=== PATIENT | female | born 1975 | race Caucasian/White ===

== ENCOUNTER 2019-11-28 12:07 | Emergency (ER) | payer BC, MEDICAID ==
--- NOTE | 2019-11-28 12:48 | ER Document Report ---
ED General - General Stated Complaint: NAUSEA,VOMITING Time Seen by Provider: 11/28/19 12:48 - HPI Notes: 44-year-old female with a history of 4 C-sections presents to the emergency room today with complaints of intermittent abdominal pain and vomiting since April but has become progressively worse over the last 3 days. She reports anytime she eats anything she starts vomiting, having abdominal pain. Since april, pt reports that she has had issues with nausea and vomiting, she does report that her pain is worse after eating. Patient states that she is also having looser stool, denies any new medications foods or travel. She is concerned that she may have appendicitis because her mother told her her symptoms sound like appendicitis reports Patient has not tried any kzyi-cjd-fxywryj medications. Reports pain is 4 out of 5. Denies any history of GI bleeds, she is unsure about melena. Denies any fevers or chills. Denies any history of GERD, for colonoscopy. Patient has not tried any mdtl-xrz-rjcvygr medications to help with her vomiting. MEDICATIONS: I agree with the patient medications as charted by the RN. ALLERGIES: I agree with the allergies as charted by the RN. PAST MEDICAL HISTORY/PAST SURGICAL HISTORY: Reviewed and agree as charted by RN. SOCIAL HISTORY: Reviewed and agree as charted by RN. FAMILY HISTORY: No significant familial comorbid conditions directly related to patient complaint EXAM: Reviewed vital signs as charted by RN. REVIEW OF SYSTEMS:reviewed vital signs by RN CONSTITUTIONAL : Denies fever, chills, or sweats. Denies recent illness. EENT: Denies eye, ear, throat, or mouth pain or symptoms. Denies nasal or sinus congestion or discharge. Denies throat, tongue, or mouth swelling or difficulty swallowing. CARDIOVASCULAR: Denies chest pain. Denies palpitations or racing or irregular heart beat. Denies ankle edema. RESPIRATORY: Denies cough, cold, or chest congestion. Denies shortness of breath, difficulty breathing, or wheezing. GASTROINTESTINAL: Reports upper abdominal pain. denies abdominal pain or distention. reports nausea. denies vomiting, or diarrhea. Denies blood in v omitus, stools, or per rectum. Denies black, tarry stools. Denies constipation. GENITOURINARY: Denies difficulty urinating, painful urination, burning, frequency, blood in urine, or discharge. FEMALE GENITOURINARY: Denies vaginal bleeding, heavy or abnormal periods, irregular periods. Denies vaginal discharge or odor. MUSCULOSKELETAL: Denies back or neck pain or stiffness. Denies joint pain or swelling. SKIN: Denies rash, lesions or sores. HEMATOLOGIC : Denies easy bruising or bleeding. LYMPHATIC: Denies swollen, enlarged glands. NEUROLOGICAL: Denies confusion or altered mental status. Denies passing out or loss of consciousness. Denies dizziness or lightheadedness. Denies headache. Denies weakness or paralysis or loss of use of either side. Denies problems with gait or speech. Denies sensory loss, numbness, or tingling. Denies seizures. PSYCHIATRIC: Denies anxiety or stress. Denies depression, suicidal ideation, or homicidal ideation. ALL OTHER SYSTEMS REVIEWED AND NEGATIVE. PHYSICAL EXAMINATION: GENERAL: Well-appearing, well-nourished and in no acute distress. HEAD: Atraumatic, normocephalic. EYES: Pupils equal round and reactive to light, extraocular movements intact, conjunctiva are normal. ENT: Nares patent, oropharynx clear without exudates. Moist mucous membranes. NECK: Normal range of motion, supple without lymphadenopathy LUNGS: Breath sounds clear to auscultation bilaterally and equal. No wheezes rales or rhonchi. HEART: Regular rate and rhythm without murmurs ABDOMEN: Soft, RUQ abd pain on palpation, epigastric a nondistended abdomen. No guarding, no rebound. No masses appreciated. no cva tenderness appreciated. Female : deferred Musculoskeletal: Normal range of motion, no pitting or edema. No cyanosis. NEUROLOGICAL: Cranial nerves grossly intact. Normal speech, normal gait. Normal sensory, motor exams PSYCH: Normal mood, normal affect. SKIN: Warm, Dry, normal turgor, no rashes or lesions noted. Dictation was performed using [employer] voice recognition software - Related Data Allergies/Adverse Reactions: No Known Allergies Allergy (Unverified 11/28/19 12:44) Past Medical History - General Information source: Patient - Social History Smoking Status: Unknown if Ever Smoked Family History: Reviewed & Not Pertinent Physical Exam - Vital signs Vitals: Temp Pulse Resp BP Pulse Ox 98.4 F 80 16 113/58 L 100 11/28/19 12:12 11/28/19 12:12 11/28/19 12:12 11/28/19 12:12 11/28/19 12:12 Course - Re-evaluation Re-evalutation: 11/28/19 18:50 Afebrile vitals stable no distress. CBC negative for leukocytosis. CMP shows no nephrotic issues, liver enzymes are well over 3 times the normal limit as well as her direct bilirubin being elevated and total bilirubin being elevated. Urinalysis does show bilirubin as well, no leukesterase. Patient given IV fluids, Zofran to help manage her nausea and. Ultrasound of abdomen does show multiple gallstones, largest measures 2 cm, normal wall thickness, no pericholecystic fluid, CT abdomen pelvis with IV and oral contrast shows that she does have a normal appendix, she does show to have gallstones, no inflammatory changes to suggest cholelithiasis however patient is having tenderness in her right upper quadrant and is symptomatic. Patient refuses to stay because she has to go home to be with her daughter because she is home alone, her ex- is coming in the morning to take the child for custody per the court order regulations. She states she does not any family in the area nobody that can watch her child. She states that she cannot stay even though I discussed with her explicitly the risk of possible temporary permanent disability or that she does need to be evaluated by a surgeon for a possible cholecystectomy. After performing a Medical Screening Examination, I spoke with the patient at length in regards to leaving the hospital against medical advice. I do not believe the patient should leave but the patient is alert oriented x4, understands the risks and benefits of staying and leaving including disability and . Pt understands that she can return at any time for further care and is more than welcome to do so. Patient was given Dr. Goldman, surgeon applications architect, contact information and was counseled to return immediately if any of her symptoms change she can bring her child if still needed. pt verbalizes this understanding. - Vital Signs Vital signs: Temp Pulse Resp BP Pulse Ox 98.7 F 92 16 105/75 100 11/28/19 18:21 11/28/19 18:21 11/28/19 18:21 11/28/19 18:21 11/28/19 18:21 - Laboratory Result Diagrams: 11/28/19 16:12 11/28/19 16:12 Laboratory results interpreted by me: 11/28/19 11/28/19 11/28/19 12:18 12:18 12:18 Hgb Hct Lymph % (Auto) 12.9 L Chloride Carbon Dioxide 31 H Glucose Calcium Total Bilirubin 3.9 H Direct Bilirubin 2.6 H AST 241 H ALT 592 H Total Protein Albumin Urine Protein 30 H Urine Bilirubin MODERATE H Urine Urobilinogen 4.0 H 11/28/19 11/28/19 16:12 16:12 Hgb 11.9 L D Hct 34.3 L Lymph % (Auto) Chloride 109 H Carbon Dioxide Glucose 71 L Calcium 7.5 L Total Bilirubin 3.3 H Direct Bilirubin 2.3 H AST 166 H ALT 419 H Total Protein 5.6 L Albumin 3.1 L Urine Protein Urine Bilirubin Urine Urobilinogen Discharge - Discharge Clinical Impression: Liver enzyme elevation, Cholelithiasis, Elevated bilirubin Condition: Stable Disposition: AGAINST MEDICAL ADVICE Referrals: COSME GOLDMAN MD [ACTIVE STAFF] - Follow up tomorrow
[2019-11-28 13:00] LABS: ABSOLUTE EOSINOPHILS # (AUTO) 0.3 10^3/uL (0.0-0.6); ABSOLUTE LYMPHOCYTES (AUTO) 1.1 10^3/uL (0.5-4.7); ABSOLUTE MONOCYTES (AUTO) 0.4 10^3/uL (0.1-1.4); ABSOLUTE NEUT (AUTO) 6.3 10^3/uL (1.7-8.2); BASOPHILS % (AUTO) 0.5 % (0-2); EOSINOPHILS % (AUTO) 4.2 % (0-6); HEMATOCRIT 42.4 % (36.0-47.0); HEMOGLOBIN 14.4 g/dL (12.0-15.5); LYMPHOCYTES % (AUTO) 12.9 % (13-45); MEAN CORPUSCULAR VOLUME 85 fl (80-97); MONOCYTES % (AUTO) 5.4 % (3-13); PLATELET COUNT 407 10^3/uL (150-450); RED BLOOD COUNT 4.97 10^6/uL (3.72-5.28); TOTAL CELLS COUNTED % (AUTO) 100 %; WHITE BLOOD COUNT 8.2 10^3/uL (4.0-10.5)
[2019-11-28] MEDS ORDERED: NORMAL SALINE 1000 ML 1,000 ML IV ONE ×2 (13:02→15:18)
[2019-11-28] MEDS ORDERED: ONDANSETRON HCL INJ/PF 4 MG/2 ML SDV IV ONE (13:02)
[2019-11-28 13:07] LABS: APPEARANCE,URINE SLIGHTLY-CLOUDY; BILIRUBIN,URINE MODERATE (NEGATIVE); COLOR,URINE AMBER; GLUCOSE, URINE NEGATIVE (NEGATIVE); KETONES,URINE NEGATIVE (NEGATIVE); LEUKOCYTE ESTERASE,URINE NEGATIVE (NEGATIVE); NITRITE,URINE NEGATIVE (NEGATIVE); PROTEIN,URINE 30 mg/dL (NEGATIVE)
[2019-11-28 13:11] LABS: ALBUMIN 4.3 g/dL (3.5-5.0); ALKALINE PHOSPHATASE 124 U/L (38-126); ANION GAP 9 (5-19); ASPARTATE AMINO TRANSFERASE 241 U/L (14-36); BILIRUBIN,DIRECT 2.6 mg/dL (0.0-0.4); BILIRUBIN,TOTAL 3.9 mg/dL (0.2-1.3); BLOOD UREA NITROGEN 13 mg/dL (7-20); CALCIUM 9.2 mg/dL (8.4-10.2); CARBON DIOXIDE 31 mmol/L (22-30); CHLORIDE 101 mmol/L (98-107); GLUCOSE 106 mg/dL (75-110); POTASSIUM 4.2 mmol/L (3.6-5.0); TOTAL PROTEIN 7.1 g/dL (6.3-8.2)
[2019-11-28] MEDS ORDERED: MAG HYDROX/AL HYDROX/SIMETH SUSP 30 ML UDCUP PO ONE (15:17)
[2019-11-28] MEDS ORDERED: LIDOCAINE 2% VISCOUS SOLN 15 ML UDCUP PO ONE (15:17)
[2019-11-28] MEDS ORDERED: METOCLOPRAMIDE HCL ORAL SOLN 10 MG/10 ML UDCUP PO ONE (15:17)
[2019-11-28 16:34] LABS: ABSOLUTE EOSINOPHILS # (AUTO) 0.2 10^3/uL (0.0-0.6); ABSOLUTE LYMPHOCYTES (AUTO) 1.2 10^3/uL (0.5-4.7); ABSOLUTE MONOCYTES (AUTO) 0.4 10^3/uL (0.1-1.4); ABSOLUTE NEUT (AUTO) 4.1 10^3/uL (1.7-8.2); BASOPHILS % (AUTO) 0.2 % (0-2); EOSINOPHILS % (AUTO) 3.4 % (0-6); HEMATOCRIT 34.3 % (36.0-47.0); LYMPHOCYTES % (AUTO) 20.1 % (13-45); MEAN CORPUSCULAR HEMOGLOBIN 29.5 pg (27.0-33.4); MEAN CORPUSCULAR HGB CONC 34.6 g/dL (32.0-36.0); MEAN CORPUSCULAR VOLUME 85 fl (80-97); MONOCYTES % (AUTO) 6.7 % (3-13); PLATELET COUNT 271 10^3/uL (150-450); RED BLOOD COUNT 4.04 10^6/uL (3.72-5.28); RED CELL DISTRIBUTION WIDTH 13.8 % (11.5-14.0); SEGMENTED NEUTROPHILS % (AUTO) 69.6 % (42-78); TOTAL CELLS COUNTED % (AUTO) 100 %; WHITE BLOOD COUNT 5.9 10^3/uL (4.0-10.5)
[2019-11-28 16:36] LABS: HEMOGLOBIN 11.9 g/dL (12.0-15.5)
[2019-11-28 16:40] LABS: ALBUMIN 3.1 g/dL (3.5-5.0); ALKALINE PHOSPHATASE 94 U/L (38-126); ANION GAP 7 (5-19); ASPARTATE AMINO TRANSFERASE 166 U/L (14-36); BILIRUBIN,DIRECT 2.3 mg/dL (0.0-0.4); BILIRUBIN,TOTAL 3.3 mg/dL (0.2-1.3); BLOOD UREA NITROGEN 11 mg/dL (7-20); CALCIUM 7.5 mg/dL (8.4-10.2); CARBON DIOXIDE 23 mmol/L (22-30); CHLORIDE 109 mmol/L (98-107); GLUCOSE 71 mg/dL (75-110); TOTAL PROTEIN 5.6 g/dL (6.3-8.2)
--- NOTE | 2019-11-28 17:08 | RADIOLOGY REPORT (SQ) ---
EXAM DESCRIPTION: U/S ABDOMEN COMPLETE W/O DOP IMAGES COMPLETED DATE/TIME: 11/28/2019 4:52 pm REASON FOR STUDY: RUQ abd pain COMPARISON: None. TECHNIQUE: Dynamic and static grayscale images acquired of the abdomen and recorded on PACS. Additio nal selected color Doppler and spectral images recorded. Note: Study does not meet criteria for complete doppler/duplex scan LIMITATIONS: None. FINDINGS: PANCREAS: No masses. Visualized pancreatic duct normal caliber. LIVER: No masses. Echotexture normal. LIVER VASCULATURE: Normal directional flow of the main portal vein and hepatic veins. GALLBLADDER: Multiple gallstones, largest measures 2 cm. Normal wall thickness. No pericholecystic f luid. ULTRASOUND-DETECTED TELLO'S SIGN: Negative. INTRAHEPATIC DUCTS AND COMMON DUCT: CBD and intrahepatic ducts normal caliber. No filling defects. INFERIOR VENA CAVA: Normal flow. AORTA: No aneurysm. RIGHT KIDNEY:Normal size. Normal echogenicity. No solid or suspicious masses. No hydronephrosis. No c alcifications. LEFT KIDNEY: Normal size. Normal echogenicity. No solid or suspicious masses. No hydronephrosis. No calcifications. SPLEEN: Normal size. No solid masses. PERITONEAL AND PLEURAL SPACES: No ascites or effusions. OTHER: No other significant finding. IMPRESSION: Multiple gallstones, largest measures 2 cm. Normal wall thickness. No pericholecystic fl uid. TECHNICAL DOCUMENTATION: JOB ID: [id number] [place]-72 2010 [employer]- All Rights Reserved Reading location - IP/workstation name: [email or web address]
[2019-11-28 18:22] VITALS: BP 105/75
--- NOTE | 2019-11-28 18:31 | RADIOLOGY REPORT (SQ) ---
EXAM DESCRIPTION: CT ABD/PELVIS WITH IV ORAL IMAGES COMPLETED DATE/TIME: 11/28/2019 6:17 pm REASON FOR STUDY: bilateral abd pain, +nausea COMPARISON: None. TECHNIQUE: CT scan of the abdomen and pelvis performed using helical scanning technique with dynamic intravenous contrast injection. No oral contrast. Images reviewed with lung, soft tissue, and bone windows. Reconstructed coronal and sagittal MPR images reviewed. Delayed images for evaluation of the urinary system also acquired. All images stored on PACS. All CT scanners at this facility use dose modulation, iterative reconstruction, and/or weight based d osing when appropriate to reduce radiation dose to as low as reasonably achievable (ALARA). [facility]: Dose Right [facility]: CareDose [facility]: Dose Right [facility]: Teradose 4D [facility]: [employer] CONTRAST TYPE AND DOSE: contrast/concentration: Isovue 350.00 mmol/ml; Total Contrast Delivered: 62. 0 ml; Total Saline Delivered: 65.0 ml RENAL FUNCTION: GFR > 60. RADIATION DOSE: CT Rad equipment meets quality standard of care and radiation dose reduction techniq ues were employed. CTDIvol: 4.8 - 5.4 mGy. DLP: 485 mGy-cm.. LIMITATIONS: None. FINDINGS: LOWER CHEST: No significant findings. No nodules or infiltrates. LIVER: Normal size. No masses. No dilated ducts. SPLEEN: Normal size. No focal lesions. PANCREAS: No masses. No significant calcifications. No adjacent inflammation or peripancreatic fluid collections. Pancreatic duct not dilated. GALLBLADDER: Gallstones. No inflammatory changes to suggest cholecystitis. ADRENAL GLANDS: No significant masses or asymmetry. RIGHT KIDNEY AND URETER: No solid masses. No significant calcifications. No hydronephrosis or hyd roureter. LEFT KIDNEY AND URETER: No solid masses. No significant calcifications. No hydronephrosis or hydr oureter. AORTA AND VESSELS: No aneurysm. No dissection. Renal arteries, SMA, celiac without stenosis. RETROPERITONEUM: No retroperitoneal adenopathy, hemorrhage or masses. BOWEL AND PERITONEAL CAVITY: No masses or inflammatory changes. No free fluid or peritoneal masses. APPENDIX: Normal. PELVIS: Enlarged fibroid uterus. ABDOMINAL WALL: No masses. No hernias. BONES: No significant or acute findings. OTHER: No other significant finding. IMPRESSION: 1. Cholelithiasis. 2. Uterine fibroids. TECHNICAL DOCUMENTATION: JOB ID: [id number] Quality ID # [id number]: Final reports with documentation of one or more dose reduction techniques (e.g., Au tomated exposure control, adjustment of the mA and/or kV according to patient size, use of iterative reconstruction technique) 2010 [employer]- All Rights Reserved Reading location - IP/workstation name: [email or web address]
--- NOTE | 2019-11-28 22:06 | EKG REPORT ---
SEVERITY:- NORMAL ECG - SINUS RHYTHM : Confirmed by: Erica Merino MD 28-Nov-2019 22:06:13
[2019-11-30 14:37] LABS: HEPATITS B SURFACE ANTIGEN Negative (Negative)
[2019-11-30 14:47] LABS: HEPATITIS C VIRUS ANTIBODY <0.1 s/co ratio (0.0-0.9)
== END 2019-11-28 19:06 | disposition left against medical advice (07) ==
LOC: ER 12:07
DX: K80.20 Calculus of gallbladder without cholecystitis without obstruction (principal); E80.6 Other disorders of bilirubin metabolism; R74.8 Abnormal levels of other serum enzymes; R11.2 Nausea with vomiting, unspecified; R10.10 Upper abdominal pain, unspecified
CPT/HCPCS: 93005; 99285; 96361; 96374; 36415; 87045; 89055; 87205; 83690; 85025; 82270; 81025; 87070; 80053; 81001; 80074; 76700; 74177; 93010; J3490; J2405; J7030

== ENCOUNTER 2019-11-29 09:01 | Observation (INO) | payer BC, MEDICAID ==
--- NOTE | 2019-11-29 09:42 | ER Document Report ---
ED GI/ - General Chief Complaint: Abdominal Pain Stated Complaint: ABDOMINAL PAIN Time Seen by Provider: 11/29/19 09:34 Mode of Arrival: Ambulatory Information source: Patient Notes: 44-year-old woman presenting to the emergency department history of cholelithiasis with right upper quadrant pain which is been ongoing for the past 3 to 4 days. She also has a history of intermittent episodes of abdominal pain with vomiting which began back in April of this year. She has a past medical history of uterine fibroids, otherwise no significant medical problems. She was seen in the emergency department yesterday apparently because of elevated liver enzymes and elevated total bilirubin with Ferrari sign and multiple gallstones told she would need to have surgery. The patient signed out AMA. She states that she has children at home and she is a single mother, she is also involved in a custody dispute. She returns today stating that she has made arrangements for her children and that she is now willing to come into the hospital for the procedure. She states she had continued episodes of pain last night, unable to eat because of increased pain and nausea and vomiting. - Related Data Allergies/Adverse Reactions: No Known Allergies Allergy (Unverified 11/28/19 12:44) Past Medical History - Social History Smoking Status: Unknown if Ever Smoked Family History: Reviewed & Not Pertinent Review of Systems - Review of Systems Notes: Constitutional: Negative for fever. HENT: Negative for sore throat. Eyes: Negative for visual changes. Cardiovascular: Negative for chest pain. Respiratory: Negative for shortness of breath. Gastrointestinal: + Right upper quadrant tenderness Genitourinary: Negative for dysuria. Musculoskeletal: Negative for back pain. Skin: Negative for rash. Neurological: Negative for headaches, weakness or numbness. 10 point ROS negative except as marked above and in HPI. Physical Exam - Vital signs Vitals: Temp Pulse Resp BP Pulse Ox 98.6 F 78 20 109/46 L 100 11/29/19 09:11 11/29/19 09:11 11/29/19 09:11 11/29/19 09:11 11/29/19 09:11 - Notes Notes: PHYSICAL EXAMINATION: Physical Exam: General: Well-nourished well-developed 44-year-old woman in no acute distress HEENT: NC/AT, pupils equal round and reactive to light, MM moist,nares clear, oropharynx clear, airway patent Neck: supple, no adenopathy, no masses. Good range of motion Lungs: clear, no wheezing, no rales no rhonchi CVS: Regular rate and rhythm no murmur gallop or rub Abdomen: Soft, active, tenderness in the right upper quadrant, + Ferrari sign, no masses, no hepatosplenomegaly Ext: No edema, clubbing or cyanosis. Neuro: Alert and responsive, moving all 4 extremities on command, cranial nerves intact, no focal findings Skin: Intact no open lesions, no rash Course - Re-evaluation Re-evalutation: 11/29/19 10:01 I discussed the patient with the general surgeon on-call Dr. Goldman, the patient has not eaten since 8 PM last night, he has been made n.p.o., a rapid coronavirus testing is requested. Dr. Goldman will accept the patient for admission and treatment. - Vital Signs Vital signs: Temp Pulse Resp BP Pulse Ox 98.6 F 78 20 109/46 L 100 11/29/19 09:11 11/29/19 09:11 11/29/19 09:11 11/29/19 09:11 11/29/19 09:11 Discharge - Discharge Clinical Impression: Cholelithiasis, Liver enzyme elevation, Elevated bilirubin Condition: Good Disposition: ADMITTED INPATIENT Admitting Provider: Surgicalist - Dr. Goldman Unit Admitted: Surgical Floor
[2019-11-29] MEDS ORDERED: NORMAL SALINE 1000 ML 1,000 ML IV ONE (10:03)
[2019-11-29] MEDS ORDERED: VECURONIUM BROMIDE INJ 10 MG VIAL IV ONE (10:24)
[2019-11-29] MEDS ORDERED: NEOSTIGMINE METHYLSULFATE 10 MG/10 ML VIAL ONE (10:24)
[2019-11-29] MEDS ORDERED: NORMAL SALINE INJ/PF 0.9% 10 ML SDV ONE (10:24)
[2019-11-29] MEDS ORDERED: SUCCINYLCHOLINE CHLORIDE INJ 200 MG/10 ML VIAL ONE (10:24)
[2019-11-29] MEDS ORDERED: GLYCOPYRROLATE 1 MG/5 ML VIAL ONE (10:24)
--- NOTE | 2019-11-29 10:28 | PDOC H&P ---
History of Present Illness Admission Date/PCP: 11/29/19 10:18 Patient complains of: Abdominal pain History of Present Illness: RASHEEDA DURON is a 44 year old female Presents emergency department for the second time in 24 hours complaining of abdominal pain nausea, anorexia. She was evaluated yesterday, found to have right upper quadrant tenderness, ultrasound and CT scan findings consistent with cholecystitis with cholelithiasis and elevated liver function studies. Advised admission and surgical intervention, however left AMA in order to take care of her children related to a domestic dispute. She returns this morning with the above complaints. She is hemodynamically stable has no evidence of sepsis. Last bowel movement yesterday loose. Last meal last night, n.p.o. since. Patient emergency department without pain. Surgery consulted, patient advised admission and definitive management. Past Medical History Past Medical History: History of smoking; history of blood transfusions 2013 Past Surgical History Past Surgical History: sections x4; blood transfusions, multiple, [place], 2013; history of shock with interventional vascular stabilization Social History Information Source: Patient Smoking Status: Unknown if Ever Smoked Frequency of Alcohol Use: Rare Hx Recreational Drug Use: No Family History Family History: None, Reviewed & Not Pertinent Parental Family History Reviewed: No Children Family History Reviewed: No Sibling(s) Family History Reviewed.: No Medication/Allergy Allergies/Adverse Reactions: No Known Allergies Allergy (Unverified 11/28/19 12:44) Review of Systems Constitutional: ABSENT: chills, fever(s), headache(s), weight gain, weight loss Eyes: ABSENT: visual disturbances Ears: ABSENT: hearing changes Cardiovascular: ABSENT: chest pain, dyspnea on exertion, edema, orthropnea, palpitations Respiratory: ABSENT: cough, hemoptysis Genitourinary: PRESENT: as per HPI Integumentary: PRESENT: other - Scattered pimples on her neck. ABSENT: rash, wounds Neurological: ABSENT: abnormal gait, abnormal speech, confusion, dizziness, focal weakness, syncope Psychiatric: ABSENT: anxiety, depression, homidical ideation, suicidal ideation Endocrine: ABSENT: cold intolerance, heat intolerance, polydipsia, polyuria Hematologic/Lymphatic: ABSENT: easy bleeding, easy bruising Physical Exam Vital Signs: Temp Pulse Resp BP Pulse Ox 98.6 F 78 20 109/46 L 100 11/29/19 09:11 11/29/19 09:11 11/29/19 09:11 11/29/19 09:11 11/29/19 09:11 Intake & Output 11/28/19 11/29/19 11/30/19 06:59 06:59 06:59 Weight 61.4 kg General appearance: PRESENT: mild distress Head exam: PRESENT: normocephalic Eye exam: PRESENT: EOMI Mouth exam: PRESENT: dry mucosa Neck exam: PRESENT: full ROM Respiratory exam: PRESENT: clear to auscultation ovidio Cardiovascular exam: PRESENT: RRR Pulses: PRESENT: normal carotid pulses, normal radial pulses, normal femoral pulses, normal dorsalis pedis pul GI/Abdominal exam: PRESENT: other - Tender right upper quadrant with guarding to moderate palpation Rectal exam: PRESENT: deferred Extremities exam: PRESENT: full ROM Musculoskeletal exam: PRESENT: full ROM Neurological exam: PRESENT: oriented to person, oriented to place, oriented to time, oriented to situation Psychiatric exam: PRESENT: appropriate affect Skin exam: PRESENT: dry Assessment & Plan - Diagnosis (1) Acute cholecystitis Is this a current diagnosis for this admission?: Yes Plan: Impression: Acute cholecystitis, cholelithiasis with elevation of liver function studies consistent with cholecystitis; rule out retained common bile duct stone my: No evidence of sepsis Discussion and recommendations 1. Patient's liver function studies diminished during the course of the day; repeat labs pending this morning. No indication to repeat radiologic studies which demonstrated gallstones on ultrasound and CT scan, and incidental uterine fibroids. Common bile duct interpreted as normal on ultrasound with no intra-or extrahepatic ductal dilatation 2. I recommended the patient be admitted, n.p.o., IV fluids intravenous antibiotics. We will obtain a rapid COVID test. 3. I recommended interval laparoscopic, possible open cholecystectomy, with intraoperative cholangiogram, general anesthesia, 1 hour, main operating room, Dr. Goldman. I have reviewed the mechanics of the operation as well as discussion of the risk benefits and alternatives. I expressed to her if she has a retained common bile duct stone, she will require post cholecystectomy ERCP. 4. Patient expresses her understanding and agrees to proceed. (2) Cholelithiasis Is this a current diagnosis for this admission?: Yes (3) History of blood transfusion Is this a current diagnosis for this admission?: Yes (4) Liver enzyme elevation Is this a current diagnosis for this admission?: Yes - Time Time Spent: 30 to 50 Minutes Critical Time spent with patient: Less than 15 minutes Medications reviewed and adjusted accordingly: Yes Anticipated Discharge Disposition: Home, Self Care Anticipated Discharge Timeframe: within 48 hours
[2019-11-29] MEDS ORDERED: RINGERS SOLUTION,LACTATED 1,000 ML IV PRN (10:29)
[2019-11-29 10:49] LABS: ABSOLUTE EOSINOPHILS # (AUTO) 0.3 10^3/uL (0.0-0.6); ABSOLUTE LYMPHOCYTES (AUTO) 1.2 10^3/uL (0.5-4.7); ABSOLUTE MONOCYTES (AUTO) 0.4 10^3/uL (0.1-1.4); ABSOLUTE NEUT (AUTO) 3.3 10^3/uL (1.7-8.2); BASOPHILS % (AUTO) 0.6 % (0-2); EOSINOPHILS % (AUTO) 4.8 % (0-6); HEMATOCRIT 36.7 % (36.0-47.0); HEMOGLOBIN 12.3 g/dL (12.0-15.5); LYMPHOCYTES % (AUTO) 22.6 % (13-45); MEAN CORPUSCULAR HEMOGLOBIN 28.6 pg (27.0-33.4); MEAN CORPUSCULAR HGB CONC 33.6 g/dL (32.0-36.0); MEAN CORPUSCULAR VOLUME 85 fl (80-97); MONOCYTES % (AUTO) 8.1 % (3-13); PLATELET COUNT 320 10^3/uL (150-450); RED BLOOD COUNT 4.32 10^6/uL (3.72-5.28); SEGMENTED NEUTROPHILS % (AUTO) 63.9 % (42-78); TOTAL CELLS COUNTED % (AUTO) 100 %; WHITE BLOOD COUNT 5.2 10^3/uL (4.0-10.5)
[2019-11-29 11:09] LABS: ALKALINE PHOSPHATASE 113 U/L (38-126); ANION GAP 8 (5-19); ASPARTATE AMINO TRANSFERASE 140 U/L (14-36); BILIRUBIN,DIRECT 0.9 mg/dL (0.0-0.4); BLOOD UREA NITROGEN 8 mg/dL (7-20); CARBON DIOXIDE 26 mmol/L (22-30); CHLORIDE 103 mmol/L (98-107); GLUCOSE 81 mg/dL (75-110); POTASSIUM 4.1 mmol/L (3.6-5.0); TOTAL PROTEIN 6.7 g/dL (6.3-8.2)
[2019-11-29] MEDS ORDERED: BUPIVACAINE HCL 0.25 % INJ/PF (2.5 MG/1 ML) 30 ML VIAL ONE (11:10)
[2019-11-29 11:15] LABS: APPEARANCE,URINE SLIGHTLY-CLOUDY; BILIRUBIN,URINE NEGATIVE (NEGATIVE); COLOR,URINE AMBER; GLUCOSE, URINE NEGATIVE (NEGATIVE); KETONES,URINE 20 mg/dL (NEGATIVE); PROTEIN,URINE NEGATIVE (NEGATIVE); URINE SPECIFIC GRAVITY 1.019; UROBILINOGEN,URINE NEGATIVE mg/dL (<2.0)
[2019-11-29] MEDS ORDERED: KETOROLAC TROMETHAMINE 60 MG/2 ML SDV ONE (11:34)
[2019-11-29] MEDS ORDERED: FENTANYL CITRATE INJ/PF 100 MCG/2 ML AMPUL ONE (11:34)
[2019-11-29] MEDS ORDERED: ONDANSETRON HCL INJ/PF 4 MG/2 ML SDV ONE ×2 (11:34→13:45)
[2019-11-29] MEDS ORDERED: DEXAMETHASONE SOD PHOSPHATE INJ 4 MG/1 ML VIAL ONE (11:34)
[2019-11-29] MEDS ORDERED: MIDAZOLAM 2 MG/2 ML INJ ONE (11:34)
[2019-11-29] MEDS ORDERED: PROPOFOL INJ 200 MG/20 ML VIAL IV ONE (11:34)
[2019-11-29] MEDS ORDERED: CEFAZOLIN INJ 1 GM VIAL ONE (11:35)
[2019-11-29] MEDS ORDERED: MORPHINE SULFATE 10 MG/ML INJ IV PRN (12:31)
[2019-11-29] MEDS ORDERED: PROMETHAZINE HCL INJ 25 MG/1 ML VIAL IV PRN ×2 (12:31)
[2019-11-29] MEDS ORDERED: ONDANSETRON HCL INJ/PF 4 MG/2 ML SDV IV PRN (12:31)
[2019-11-29] MEDS ORDERED: MEPERIDINE HCL/PF INJ 25 MG/1 ML DISP.SYRIN IV PRN (12:31)
[2019-11-29] MEDS ORDERED: DIPHENHYDRAMINE HCL 50 MG/ML VIAL IV PRN (12:31)
[2019-11-29] MEDS ORDERED: OXYCODONE-ACETAMINOPHEN 5-325 MG TABLET PO PRN ×2 (12:31)
[2019-11-29] MEDS ORDERED: FENTANYL CITRATE INJ/PF 100 MCG/2 ML AMPUL IV PRN ×3 (12:31)
--- NOTE | 2019-11-29 13:17 | Operative Report ---
Operative Report DATE OF SURGERY: 11/29/19 PREOPERATIVE DIAGNOSIS: 1. Acute cholecystitis with cholelithiasis. 2. [place] liver function studies POSTOPERATIVE DIAGNOSIS: Same with no evidence of common bile duct obstruction, or common bile duct stone OPERATION: 1. Laparoscopic cholecystectomy. 2. Intraoperative cholangiography. 3. Interpretation of intraoperative cholangiography SURGEON: COSME CANCHOLA ANESTHESIA: GA TISSUE REMOVED OR ALTERED: 1 gallbladder with stones COMPLICATIONS: None ESTIMATED BLOOD LOSS: Scant INTRAOPERATIVE FINDINGS: See below PROCEDURE: The patient was taken to the preop holding her to the main operating room where general anesthesia was induced. Arms were abducted, abdomen prepped and draped in sterile fashion. Surgical plan and surgical timeout were conducted. Markings were made on the skin for for port laparoscopy. All 4 sites were anesthetized with 1% plain lidocaine. A vertical incision was made over the umbilicus at the site of previous scar. Knife used to incise the underlying subcutaneous tissue and anterior fascia. The Veress needle was inserted to peritoneal cavity, pneumoperitoneum established, Veress needle removed, 5 mm port inserted and a 5 mm viewing scope was inserted. There was no evidence of bowel or vascular injury. Under direct visualization 3 additional ports were placed all under direct visualization to the subxiphoid, subcostal positions. The gallbladder was moderately distended. It also had some edema, but was not markedly swollen, tight or erythematous. Graspers were placed in the gallbladder and infundibulum. Using hook cautery dissection, the neck of the gallbladder was dissected out. The anatomy here was classic. Photos were taken during the dissection. The cystic artery and cystic vein were in their usual location. The triangle of Calot was opened widely. The cystic artery was ardon rrounded with dissector, photographed, clipped twice proximally once distally divided with scissors. The triangle of Calot was opened widely. Photographs taken. A clip was placed on the gallbladder side of the cystic duct, and an opening made in the cystic duct with a laparoscopic scissors. We brought onto the field a disposable cholangiogram catheter inserted through the intra- abdominal wall using a fan blade. The inner cannula was removed, and irrigation and cholangiogram equipment attached to the cholangiogram catheter. We now introduced the tip of the catheter into the cystic duct, and secured into position with a clip applicator. Patient was leveled out, all instruments removed, and approximately 8 cc of full contrast Isovue was injected into the cholangiogram catheter. This revealed opacification of the distal common hepatic duct, the entire common bile duct which was enlarged, however it tapered as it went distally towards the duodenum. There was immediate egress of contrast into the duodenum. Multiple photos were taken. Was no obvious filling defect in the common bile duct; the proximal biliary tree was not visualized in its entirety despite manipulating the patient into Trendelenburg position. There was no evidence of leak. In summary the cholangiogram, though limited due to incomplete opacification of the proximal biliary tree, demonstrated no bile leak, no retained stone in the common bile duct, and rapid contrast into the duodenum. We returned to the field laparoscopically remove the cholangiogram catheter, and took the gallbladder off of the liver bed using hook cautery dissection. We secured the cystic duct proximally with a clip and a 0 PDS loop. There was no evidence of bile leak. The gallbladder was removed from the patient after opening up the fascial defect at the supraumbilical port site. The specimen had multiple stones. It was sent to pathology We returned the peritoneal cavity check for bleeding there was none. Clips on the cystic Artery Stump, Cystic Duct Stump, and Endoloop on the cystic duct stump all visualized, felt to be secure, photographed and no evidence of bile leaking. We felt the operation was complete. Sponge and needle counts are correct. All ports removed under direct visualization, pneumoperitoneum evacuated, and wounds closed with 0 Vicryl at the fascial level above the umbilicus, the skin level with 3-0 Vicryl suture. Benzoin Steri-Strips applied. Patient tolerated the procedure well, extubated, taken to the recovery room in stable condition.
[2019-11-29] MEDS ORDERED: ONDANSETRON HCL INJ/PF 4 MG/2 ML SDV IV ONE (13:48)
[2019-11-29] MEDS: OXYCODONE-ACETAMINOPHEN 5-325 MG TABLET PO PRN ×2 (14:29→18:29)
--- NOTE | 2019-11-29 16:00 | RADIOLOGY REPORT (SQ) ---
EXAM DESCRIPTION: NO CHG FLUORO; CHOLANGIOGRAM OPERATIVE IMAGES COMPLETED DATE/TIME: 11/29/2019 1:35 pm REASON FOR STUDY: LAP RICKEY COMPARISON: None. FLUOROSCOPY TIME: 0.1 minutes 8 images saved to PACS. TECHNIQUE: Cinegraphic images were obtained from an intraoperative cholangiogram. LIMITATIONS: None. FINDINGS: There is opacification of the bile ducts, cystic duct remnants and second portion of the d uodenum without evidence of fixed filling defect or significant extravasation. IMPRESSION: INTRAOPERATIVE CHOLANGIOGRAM. COMMENT: Quality ID 145: Final reports for procedures using fluoroscopy that document radiation exp osure indices, or exposure time and number of fluorographic images (if radiation exposure indices are not available) TECHNICAL DOCUMENTATION: JOB ID: [id number] 2010 [employer]- All Rights Reserved Reading location - IP/workstation name: [email or web address]
--- NOTE | 2019-11-29 16:00 | RADIOLOGY REPORT (SQ) ---
EXAM DESCRIPTION: NO CHG FLUORO; CHOLANGIOGRAM OPERATIVE IMAGES COMPLETED DATE/TIME: 11/29/2019 1:35 pm REASON FOR STUDY: LAP RICKEY COMPARISON: None. FLUOROSCOPY TIME: 0.1 minutes 8 images saved to PACS. TECHNIQUE: Cinegraphic images were obtained from an intraoperative cholangiogram. LIMITATIONS: None. FINDINGS: There is opacification of the bile ducts, cystic duct remnants and second portion of the d uodenum without evidence of fixed filling defect or significant extravasation. IMPRESSION: INTRAOPERATIVE CHOLANGIOGRAM. COMMENT: Quality ID 145: Final reports for procedures using fluoroscopy that document radiation exp osure indices, or exposure time and number of fluorographic images (if radiation exposure indices are not available) TECHNICAL DOCUMENTATION: JOB ID: [id number] 2010 [employer]- All Rights Reserved Reading location - IP/workstation name: [email or web address]
[2019-11-29] MEDS: DOCUSATE SODIUM 100 MG CAPSULE PO SCH (18:17)
[2019-11-29] MEDS ORDERED: SIMETHICONE 80 MG TAB.CHEW PO ONE (18:30)
[2019-11-29] MEDS ORDERED: ZOLPIDEM TARTRATE 5 MG TABLET ONE (20:28)
[2019-11-29] MEDS ORDERED: KETOROLAC TROMETHAMINE INJ/PF 30 MG/1 ML SDV ONE (21:09)
[2019-11-29] MEDS: KETOROLAC TROMETHAMINE INJ/PF 30 MG/1 ML SDV IV PRN (21:13)
[2019-11-30] MEDS: KETOROLAC TROMETHAMINE INJ/PF 30 MG/1 ML SDV IV PRN ×3 (03:43→15:13)
--- NOTE | 2019-11-30 07:07 | PDOC DISCHARGE SUMMARY ---
General - Admit/Disc Date/PCP Admission Date/Primary Care Provider: 11/29/19 10:18 Discharge Date: 11/30/19 - Discharge Diagnosis Final Diagnosis: Symptomatic cholelithiasis with cholecystitis; elevated liver function studies - Assessment Summary: 44-year-old white female with recurrent visits to the emergency department for abdominal pain, anorexia, right upper quadrant tenderness, and gallbladder ultrasonography demonstrating gallstones with elevated liver function studies. Her preoperative total bilirubin was 2.0 patient was admitted to the surgical service, kept n.p.o., had a COVID test which was negative, was taken to the operating room and underwent laparoscopic cholecystectomy with intraoperative cholangiography. She was found to have a tapered distal common bile duct but no evidence of retained stones, E flux into the duodenum, and no extravasation. She tolerated procedure well, did have some pain out of proportion to physical findings postoperatively, but does settle down with the Toradol. Of the following morning she was doing well, tolerating diet, voiding, had stable vital signs and was ready for discharge home. Patient will be discharged home to care of her family, follow-up with Dr. Goldman at [facility] in 1 to 2 weeks, take Tylenol or Motrin as needed pain, shower call the office if any problems develop in the interim. - Additional Information Resuscitation Status: Full Code Discharge Diet: As Tolerated Discharge Activity: Activity As Tolerated - Patient may shower; take Motrin or Tylenol as needed pain; follow-up with [facility] in 1 to 2 weeks. Home Medications: No Home Medications 11/29/19 History of Present Illiness History of Present Illness: RASHEEDA DURON is a 44 year old female Presents emergency department for the second time in 24 hours complaining of abdominal pain nausea, anorexia. She was evaluated yesterday, found to have right upper quadrant tenderness, ultrasound and CT scan findings consistent with cholecystitis with cholelithiasis and elevated liver function studies. Advised admission and surgical intervention, however left AMA in order to take care of her children related to a domestic dispute. She returns this morning with the above complaints. She is hemodynamically stable has no evidence of sepsis. Last bowel movement yesterday loose. Last meal last night, n.p.o. since. Patient emergency department without pain. Surgery consulted, patient advised admission and definitive management. Physical Exam Vital Signs: Temp Pulse Resp BP Pulse Ox 97.7 F 57 L 16 106/70 98 11/30/19 03:51 11/30/19 03:51 11/30/19 03:51 11/30/19 03:51 11/30/19 03:51 Intake & Output 11/29/19 11/30/19 12/01/19 06:59 06:59 06:59 Intake Total 2540 Output Total 555 1984 Weight 65.3 kg Results Laboratory Results: WBC 5.2 10^3/uL (4.0-10.5) 11/29/19 10:10 RBC 4.32 10^6/uL (3.72-5.28) 11/29/19 10:10 Hgb 12.3 g/dL (12.0-15.5) 11/29/19 10:10 Hct 36.7 % (36.0-47.0) 11/29/19 10:10 MCV 85 fl (80-97) 11/29/19 10:10 MCH 28.6 pg (27.0-33.4) 11/29/19 10:10 MCHC 33.6 g/dL (32.0-36.0) 11/29/19 10:10 RDW 14.0 % (11.5-14.0) 11/29/19 10:10 Plt Count 320 10^3/uL (150-450) 11/29/19 10:10 Lymph % (Auto) 22.6 % (13-45) 11/29/19 10:10 Rush % (Auto) 8.1 % (3-13) 11/29/19 10:10 Eos % (Auto) 4.8 % (0-6) 11/29/19 10:10 Baso % (Auto) 0.6 % (0-2) 11/29/19 10:10 Absolute Neuts (auto) 3.3 10^3/uL (1.7-8.2) 11/29/19 10:10 Absolute Lymphs (auto) 1.2 10^3/uL (0.5-4.7) 11/29/19 10:10 Absolute Monos (auto) 0.4 10^3/uL (0.1-1.4) 11/29/19 10:10 Absolute Eos (auto) 0.3 10^3/uL (0.0-0.6) 11/29/19 10:10 Absolute Basos (auto) 0.0 10^3/uL (0.0-0.2) 11/29/19 10:10 Seg Neutrophils % 63.9 % (42-78) 11/29/19 10:10 Sodium 137.0 mmol/L (137-145) 11/29/19 10:10 Potassium 4.1 mmol/L (3.6-5.0) 11/29/19 10:10 Chloride 103 mmol/L (98-107) 11/29/19 10:10 Carbon Dioxide 26 mmol/L (22-30) 11/29/19 10:10 Anion Gap 8 (5-19) 11/29/19 10:10 BUN 8 mg/dL (7-20) 11/29/19 10:10 Creatinine 0.73 mg/dL (0.52-1.25) 11/29/19 10:10 Est GFR ( Amer) > 60 (>60) 11/29/19 10:10 Est GFR (MDRD) Non-Af > 60 (>60) 11/29/19 10:10 Glucose 81 mg/dL (75-110) 11/29/19 10:10 Calcium 9.0 mg/dL (8.4-10.2) 11/29/19 10:10 Total Bilirubin 2.0 mg/dL (0.2-1.3) H 11/29/19 10:10 Direct Bilirubin 0.9 mg/dL (0.0-0.4) H 11/29/19 10:10 Neonat Total Bilirubin Not Reportable 11/29/19 10:10 Neonat Direct Bilirubin Not Reportable 11/29/19 10:10 Neonat Indirect Bili Not Reportable 11/29/19 10:10 AST 140 U/L (14-36) H 11/29/19 10:10 ALT 413 U/L (<35) H 11/29/19 10:10 Alkaline Phosphatase 113 U/L (38-126) 11/29/19 10:10 Total Protein 6.7 g/dL (6.3-8.2) 11/29/19 10:10 Albumin 4.0 g/dL (3.5-5.0) 11/29/19 10:10 Urine Color BROOKS 11/29/19 10:30 Urine Appearance SLIGHTLY-CLOUDY 11/29/19 10:30 Urine pH 5.0 (5.0-9.0) 11/29/19 10:30 Ur Specific [place] 1.019 11/29/19 10:30 Urine Protein NEGATIVE mg/dL (NEGATIVE) 11/29/19 10:30 Urine Glucose (UA) NEGATIVE mg/dL (NEGATIVE) 11/29/19 10:30 Urine Ketones 20 mg/dL (NEGATIVE) H 11/29/19 10:30 Urine Blood NEGATIVE (NEGATIVE) 11/29/19 10:30 Urine Nitrite (Reflex) NEGATIVE (NEGATIVE) 11/29/19 10:30 Urine Bilirubin NEGATIVE (NEGATIVE) 11/29/19 10:30 Urine Urobilinogen NEGATIVE mg/dL (<2.0) 11/29/19 10:30 Leukocyte Esterase Rfl NEGATIVE (NEGATIVE) 11/29/19 10:30 Urine RBC (Auto) 2 /HPF 11/29/19 10:30 Urine WBC (Reflex) 1 /HPF 11/29/19 10:30 Squamous Epi Cells Auto 7 /HPF 11/29/19 10:30 Urine Mucus (Auto) OCC /LPF 11/29/19 10:30 Urine Ascorbic Acid NEGATIVE (NEGATIVE) 11/29/19 10:30 Urine HCG, Qual NEGATIVE (NEGATIVE) 11/29/19 10:30 SARS-CoV-2 (PCR) NEGATIVE (NEGATIVE) 11/29/19 10:10 Impressions: Cholangiogram 11/29/19 11:00 IMPRESSION: INTRAOPERATIVE CHOLANGIOGRAM. Fluoroscopy 11/29/19 11:00
[2019-11-30 07:17] VITALS: BP 106/68
[2019-11-30] MEDS: DOCUSATE SODIUM 100 MG CAPSULE PO SCH (09:23)
== END 2019-11-30 16:20 | disposition home or self-care (01) ==
LOC: ER 09:01 → EH 10:18 → INTOOBSV 10:18 → 2N 14:15
PROC: 0FT44ZZ Resection of Gallbladder, Percutaneous Endoscopic Approach (ICD-10-PCS; principal; 2019-11-29 12:30)
DX: K80.00 Calculus of gallbladder with acute cholecystitis without obstruction (principal); R94.5 Abnormal results of liver function studies; R10.11 Right upper quadrant pain; R63.0 Anorexia; R11.0 Nausea; Z87.891 Personal history of nicotine dependence; Z20.828 Contact with and (suspected) exposure to other viral communicable diseases
CPT/HCPCS: 47563; 99285; 96360; 96361; 36415; 85025; 81025; 80053; 81001; 88304 ×2; 74300; 00790; G0378 ×4; U0003; J2250; J0690; J1100; J1885 ×3; J3010; J3490 ×5; J2710; J0330; J2405; J7120; J2704; C9803; 790; 87635